=== PATIENT | female | born 1970 | race Caucasian/White ===

== ENCOUNTER 2016-06-14 21:55 | Emergency (ER) | payer OTHER ==
--- NOTE | 2016-06-15 03:12 | ED CLINICAL REPORT ---
Clinical Report - Physicians/Mid Levels [facility] [address] [place] [address] 06/14/2016 21:56 Patient: MICHELLE VENTURA Time Seen: 22:52. Arrived- By private vehicle. Historian- patient. HISTORY OF PRESENT ILLNESS Chief Complaint: ABDOMINAL PAIN. It is described as "pain". No radiation. It is described as located in the right flank and the right abdomen and right lower quadrant. This started about 3 days ago and is now gone. It was abrupt in onset and has been intermittent. No nausea or vomiting. She has had mild diarrhea. No bloody or blood-tinged diarrhea. Similar symptoms previously: REVIEW OF SYSTEMS The patient is post-menopausal. No pelvic pain or vaginal discharge. She has had pain during and after urination. All systems otherwise negative, except as recorded above. SOCIAL HISTORY Current every day light tobacco smoker (cigarette)- less than 1/2 a pack per day. Regular alcohol use. History of heavy drug use: marijuana. FAMILY HISTORY Denies family medical history. ADDITIONAL NOTES The nursing notes have been reviewed. PHYSICAL EXAM Vital Signs: 06/14/2016 22:30 BP: 122/91. HR: 97. RR: 17. O2 saturation: 100%. Temp: 98.1 F. Pain level now: 0/10. Have been reviewed. Appearance: Alert. Eyes: Pupils equal, round and reactive to light. ENT: Pharynx normal. Neck: Normal inspection. Neck supple. CVS: Normal heart rate and rhythm. Heart sounds normal. Respiratory: No respiratory distress. Breath sounds normal. Abdomen: Soft. Mild tenderness in the right side of the abdomen. Abnormal bowel sounds: hyperactive. No organomegaly. No mass. Back: Normal inspection. No CVA tenderness. Skin: Skin warm and dry. Normal skin color. Normal skin turgor. Extremities: Extremities exhibit normal ROM. No calf tenderness. No lower extremity edema. LABS, X-RAYS, AND EKG Abdominal CT: nonspecific findings. No evidence of appendicitis. Cannot exclude early or mild colitis in the appropriate clinical setting. It is not convincing. Elongated right lobe of liver may be hepatomegaly or prominent right L slope no urinary tract stone or evidence of UTI degenerative changes at L4-5 greater on the right transitional vertebral body on the right at L5-S1. The study was interpreted by the radiologist and contemporaneously by me. Laboratory Tests: CBC w Diff: (RACHEL: 06/15/2016 01:48) ( MsgRcvd 06/15/2016 01:58) Final results Test Result Flag Units (Reference) WHITE BLOOD COUNT 7.8 K/uL (4.5-11.5) RED BLOOD COUNT 4.40 M/uL (4.00-5.20) HEMOGLOBIN 14.3 gm/dL (12.0-16.0) HEMATOCRIT 43.3 % (36.0-46.0) MEAN CELL VOLUME 98 fL (80-100) MEAN CORPUSCULAR HGB 32 pg (26-34) MEAN CORPUSCULAR HGB CONC 33 g/dL (31-37) RED CELL DISTRIBUTION WIDTH 13.5 % (11.6-14.8) PLATELET COUNT 331 K/uL (150-400) NEUTROPHIL % 51.9 % (50-75) LYMPH % 37.3 % (25-40) MONO % 7.6 % (3-14) EOSINOPHIL % 2.1 % (0-4) BASOPHIL % 1.1 % (0-2) CMP: (RACHEL: 06/15/2016 01:48) ( MsgRcvd 06/15/2016 02:10) Final results Test Result Flag Units (Reference) GLUCOSE 94 mg/dL (70-110) BUN 4 L mg/dL (7-18) CREATININE 0.6 mg/dL (0.6-1.3) Estimated GFR >60 mL/min Estimated GFR- >60 mL/min Note: Persistent reduction over 3 months in eGFR<60 mL/min/1.73 m2 defines CKD. Patients with eGFR values>=60 mL/min/1.73 m2 may also have CKD if evidence ofpersistent proteinuria. Additional information may be foundat www.kidney.org. SODIUM 144 mmol/L (136-145) POTASSIUM 3.9 mmol/L (3.5-5.1) CHLORIDE 107 mmol/L (98-107) CARBON DIOXIDE 25 mmol/L (21-32) CALCIUM 8.3 L mg/dL (8.5-10.1) TOTAL PROTEIN 7.5 g/dL (6.4-8.2) ALBUMIN 3.7 g/dL (3.3-5.0) BILIRUBIN, TOTAL 0.4 mg/dL (0.0-1.0) ALKALINE PHOSPHATASE 99 U/L (46-116) AST (SGOT) 20 U/L (15-37) ALT (SGPT) 27 U/L (12-78) LIPASE 177 U/L (73-393) AMYLASE 41 U/L (25-115) UA-Culture if indicated: (RACHEL: 06/14/2016 22:45) ( MsgRcvd 06/14/2016 23:04) Final results Test Result Flag Units (Reference) URINE COLOR YELLOW URINE APPEARANCE CLEAR URINE GLUCOSE NEGATIVE (NEGATIVE) URINE BILIRUBIN NEGATIVE (NEGATIVE) URINE KETONE NEGATIVE (NEGATIVE) URINE SPECIFIC GRAVITY <= 1.005 L (1.010-1.030) URINE PH 6.0 (5.0-8.0) URINE PROTEIN NEGATIVE (NEGATIVE) URINE UROBILINOGEN 0.2 EU/dL (0.2-1.0) URINE NITRITE NEGATIVE (NEGATIVE) URINE BLOOD TRACE-INTACT (NEGATIVE) URINE LEUK ESTERASE NEGATIVE (NEGATIVE) URINE RBC 0-1 rbc/hpf (0-1) URINE WBC 0-1 wbc/hpf (0-1) URINE EPITHELIAL CELLS 0-1 EPI/hpf (0-5) URINE BACTERIA NONE SEEN (NONE SEEN) URINE COMMENT CULT NOT INDICATED URINE CULTURES ARE SET-UP BASED ON THE FOLLOWING CRITERIA:POSITIVE NITRITEPOSITIVE LEUKOCYTE ESTERASEGREATER THAN 10 WHITE BLOOD CELLSMODERATE (2+) OR GREATER BACTERIA Urine: (RACHEL: 06/14/2016 22:45) ( MsgRcvd 06/14/2016 23:01) Final results Test Result Flag Units (Reference) URINE NEGATIVE . PROGRESS AND PROCEDURES Course of Care: Patient is stable. Patient/family counseled. Old medical records ordered. Old records unavailable. Disposition: Discharged. Condition: stable. CLINICAL IMPRESSION Acute gastroenteritis. INSTRUCTIONS Drink plenty of fluids. Warnings: Further evaluation is necessary. GENERAL WARNINGS: Return or contact your physician immediately if your condition worsens or changes unexpectedly, if not improving as expected, or if other problems arise. Understanding of the discharge instructions verbalized by patient and family. Follow-up with: Tate Pollock MD, [facility], , [address] [place] [address] Follow up tomorrow. Call for the next available appointment. (Electronically signed by Terrell Presley MD 06/19/2016 15:58)
--- NOTE | 2016-06-15 03:12 | ED ORDER SUMMARY ---
..... Patient: MICHELLE VENTURA OrderSheet [facility] VisitID: [id number] [place] [address] 45y, F Registration Date/Time: 06/14/2016 ORDER SHEET Weight: 67.1 kg (stated) Allergies: Vicodin, Codeine GENERAL ORDERS: UA-Culture if indicated Urgent (22:54 06/14/2016 Joshua LOMBARDI) (Ack 23:10 Meka) (23:16 JQuivey R.N.) Urine Urgent (:54 06/14/2016 Joshua LOMBARDI) (Ack 23:10 Meka) (23:16 JQuivey R.N.) CBC w Diff Urgent (06/15/2016 Joshua LOMBARDI) (Ack 1:32 LMuller) (1:50 JQuivey R.N.) CMP Urgent (:06/15/2016 Joshua LOMBARDI) (Ack 1:32 LMuller) (1:50 JQuivey R.N.) Amylase Urgent (:06/15/2016 Joshua LOMBARDI) (Ack 1:32 LMharithaer) (1:50 JQuivey R.N.) Lipase Urgent (:06/15/2016 Joshua LOMBARDI) (Ack 1:32 LMuller) (1:51 JQuivey R.N.) CT Abd/Pel w Cont (No) (See report) Urgent (:31 06/15/2016 Joshua LOMBARDI) (Ack 1:32 BOBuller) (2:32 Baltazar) (2:33 JQuivey R.N.) MEDICATION ORDERS: IV FLUIDS: IV NS : initial bolus 500 mL (1000 mL/hr), then 125 mL/hr for 4h (NOW); Urgent (:06/15/2016 Joshua LOMBARDI) (Ack 1:33 JQuivey R.N.) ORDER SHEET NOTES: [Electronically signed by Rosalina Granados R.N. (03:23 06/15/2016)] [Electronically signed by Terrell Presley MD (15:58 06/19/2016)] [Electronically locked/signed by Rosalina Granados R.N. (03:23 06/15/2016)]
--- NOTE | 2016-06-15 03:12 | ED NURSING NOTES ---
Clinical Report - Nurses [facility] [address] [place] [address] 06/14/2016 21:56 Patient: MICHELLE VENTURA TRIAGE Triage time 22:30. Acuity: LEVEL 3. Chief Complaint: ABDOMINAL PAIN and (Dark stools). 22:43. Alert. SEPSIS SCREEN: Sepsis Screen. Negative (no infection suspected/documented). --22:43 Myke Lubin R.N. 22:30 06/14/16. BP: 122/91. HR: 97. RR: 17. O2 saturation: 100% on room air. Temp: 98.1 F (oral). Pain level now: 0/10. Additional comments: Patient reports no pain as long as she pushes on her RLQ, pain worse when she sits up . --22:43 yMke Lubin R.N. Height/Length: 65 inches Per Patient. --22:36 Myke Lubin R.N.. <<STRICKEN ENTRY-- Weight: 544.3 kg stated. BMI: 199.9. --END STRIKE>> Correction --22:36 Myke Lubin R.N.. Weight: 67.1 kg stated. BMI: 24.6. --22:36 Myke Lubin R.N. Medications Xanax Oral 1 mg, at bedtime. --22:38 Myke Lubin R.N. Cyclobenzaprine HCl Oral 20 mg, at bedtime. --22:39 Myke Lubin R.N. Allergies Vicodin. --22:40 Myke Lubin R.N. Codeine. --22:40 Myke Lubin R.N. Medication/allergy information source: the patient. --22:43 Myke Lubin R.N. History Arrived by private vehicle. Historian: patient. Accompanied by spouse. Primary physician (Phill). Onset. (1 months ago). ( Patient reports being worked up by Dr. Pollock for this same issue). Treatment MATHEMATICS DEPARTMENT CHAIR: None. PAST MEDICAL HX: Immunizations: up-to-date. Last normal menstrual period- 7 years ago. The patient is post-menopausal. SOCIAL HX: Current every day heavy tobacco smoker- 1 pack per day. Regular alcohol use. (amount varies). History of drug use: marijuana. (daily). No recent travel. No infectious disease exposure. ABUSE ASSESSMENT: No report of abuse. FALL RISK ASSESSMENT: Fall risk assessment completed. No fall risk identified. NUTRITIONAL RISK ASSESSMENT: The nutritional risk assessment revealed no deficiencies. FUNCTIONAL ASSESSMENT: Functional assessment: no impairments noted. LEARNING NEEDS ASSESSMENT: The learning needs assessment revealed no barriers. SKIN INTEGRITY ASSESSMENT: Skin integrity risk assessment completed. No skin integrity risk identified. --22:43 Myke Lubin R.N. PROBLEMS: Panic Attack. Agoraphobia. Anxiety Reaction. --22:41 Myke Lubin R.N. ADDITIONAL SURGERIES: Right hand surgery . --22:41 Myke Lubin R.N. Interventions ID band on patient. To treatment room. --22:43 Myke Lubin R.N. PHYSICAL ASSESSMENT 22:44. Ambulatory to room. Patient gowned. GENERAL / NEURO / PSYCH: Alert. Oriented X 4. HEENT: Mucous membranes are pink. RESPIRATORY: Respirations not labored. SKIN: Skin is warm and dry. --22:44 Myke Lubin R.N. NURSING PROGRESS NOTES 22:30 Patient to restroom to collect urine sample. --22:30 Myke Lubin R.N. 22:35. Patient ID band checked for patient name and birthdate: patient confirmed. Clean catch urine collected with return of yellow-colored clear urine; sample sent to lab for urinalysis. Specimen labeled in the presence of the patient. --22:44 Myke Lubin R.N. 22:44 Patient made a statement that didn't want any more tests CT scans done, I told her she can refuse any tests /treatment, when I told her with where her pain is located and with her symptoms we are concerned about appendacytis and a poosible GI bleed, the patient began to cry and asked if she could take 1 of her Xanax, I told her I can't stop her from taking her medications. --22:55 Myke Lubin R.N. 22:[address] Presley about pt and the Xanax. --22:55 Myke Lubin R.N. 01:08 06/15/16. BP: 99/71. HR: 77. O2 saturation: 95%. Temp: 97.8 F. --01:10 Chloe Du 01:45 06/15/2016 Site #1 started via IV in the right wrist with an 20g angiocath, with aseptic technique and good blood return; one attempt. Blood drawn: rainbow set. Labeled in the presence of the patient and sent to the lab. Saline lock flushed with 10 mL saline. --01:51 Myke Lubin R.N. 01:48 06/15/2016 Started bag #1 1000 mL IV Fluids IV NS (Saline); at 1000 mL/hr over 30 minute(s) via site #1 via IV pump. Allergies verified and confirmed 5 rights. IV patency established. IV site checked: no pain, redness, or swelling. IV flushed thoroughly pre- and post-medication administration. --01:51 Myke Lubin R.N. 02:33 06/15/2016 IV Fluids IV NS via IV site #1 Rate Changed: bag #1 decreased to 125 mL/hr via IV pump. IV patency established. IV site checked: no pain, redness, or swelling. IV flushed thoroughly. --02:33 Myke Lubin R.N. 02:13. Patient transported to CT by stretcher with tech. --02:34 Myke Lubin R.N. 02:27. Patient returned from CT by stretcher with tech. --02:34 Myke Lubin R.N. DISPOSITION / DISCHARGE 03:21 06/15/16. BP: 120/89. HR: 92. RR: 16. O2 saturation: 100% on room air. Temp: deferred. Rushing-Maciel pain scale: 09/13. --03:22 Rosalina Granados R.N. Condition at departure: improved and stable. No learning barriers present. Discharge instructions provided and reviewed with the patient. Patient verbalized understanding. Written instructions provided in Faroese. The patient was discharged home and accompanied by family. She left the Emergency Department ambulatory and via private vehicle. Family member driving. --03:22 Rosalina Granados R.N. 03:15 06/15/2016 Site #1 removed upon discharge. Catheter intact. Manual pressure and bandage applied. --03:22 Rosalina Granados R.N. 03:15 06/15/2016 IV Fluids IV NS Discontinued: bag #1 STOPPED. Total amount infused: 600 mL. IV patency established. IV site checked: no pain, redness, or swelling. IV flushed thoroughly. --03:22 Rosalina Granados R.N. Locked/Released at 06/15/2016 3:23 by Rosalina Granados R.N.
--- NOTE | 2016-06-15 03:12 | ED ORDER SUMMARY ---
..... Patient: MICHELLE VENTURA OrderSheet [facility] VisitID: [id number] [place] [address] 45y, F Registration Date/Time: 06/14/2016 ORDER SHEET Weight: 67.1 kg (stated) Allergies: Vicodin, Codeine GENERAL ORDERS: UA-Culture if indicated Urgent (22:54 06/14/2016 Joshua LOMBARDI) (Ack 23:10 Meka) (23:16 JQuivey R.N.) Urine Urgent (:54 06/14/2016 Joshua LOMBARDI) (Ack 23:10 Meka) (23:16 JQuivey R.N.) CBC w Diff Urgent (06/15/2016 Joshua LOMBARDI) (Ack 1:32 LMuller) (1:50 JQuivey R.N.) CMP Urgent (:06/15/2016 Joshua LOMBARDI) (Ack 1:32 LMuller) (1:50 JQuivey R.N.) Amylase Urgent (:06/15/2016 Joshua LOMBARDI) (Ack 1:32 LMharithaer) (1:50 JQuivey R.N.) Lipase Urgent (:06/15/2016 Joshua LOMBARDI) (Ack 1:32 LMuller) (1:51 JQuivey R.N.) CT Abd/Pel w Cont (No) (See report) Urgent (:31 06/15/2016 Joshua LOMBARDI) (Ack 1:32 BOBuller) (2:32 Baltazar) (2:33 JQuivey R.N.) MEDICATION ORDERS: IV FLUIDS: IV NS : initial bolus 500 mL (1000 mL/hr), then 125 mL/hr for 4h (NOW); Urgent (:06/15/2016 Joshua LOMBARDI) (Ack 1:33 JQuivey R.N.) ORDER SHEET NOTES: [Electronically signed by Rosalina Granados R.N. (03:23 06/15/2016)] [Electronically signed by Terrell Presley MD (15:58 06/19/2016)] [Electronically locked/signed by Rosalina Granados R.N. (03:23 06/15/2016)]
--- NOTE | 2016-06-15 07:33 | DIAGNOSTIC IMAGING REPORT ---
PROCEDURE: CT ABD/PELVIS WITH CONTRAST INDICATION: Right flank and abdominal pain. TECHNIQUE: 125 ml of Isovue 300 were injected intravenously and axial images were obtained of the entire abdomen and pelvis with sagittal and coronal reformations. Preliminary report provided by Leena Montoya MD ([facility]). COMPARISON: Compared to renal ultrasound on 01/27/2016. FINDINGS: ABDOMEN: Mild increased fluid in the stomach, small bowel, and right colon. Bowel pattern is otherwise normal, including appendix. Gallbladder, liver, spleen, pancreas, kidneys, and aorta are normal. Mild to moderate degenerative changes of the lower lumbar spine. PELVIS: Uterus and adnexal structures are normal. No evidence of free fluid. IMPRESSION: 1. Mild increased fluid in the stomach, small bowel, right colon. Consider developing gastroenteritis. 2. Otherwise negative CT abdomen and pelvis. 3. Findings discussed with Dr. Presley. All CT scans at this facility use dose modulation, iterative reconstruction, and/or weight-based dosing when appropriate to reduce radiation dose to as low as reasonably achievable.
--- NOTE | 2016-06-15 07:33 | DIAGNOSTIC IMAGING REPORT ---
PROCEDURE: CT ABD/PELVIS WITH CONTRAST INDICATION: Right flank and abdominal pain. TECHNIQUE: 125 ml of Isovue 300 were injected intravenously and axial images were obtained of the entire abdomen and pelvis with sagittal and coronal reformations. Preliminary report provided by Leena Montoya MD ([facility]). COMPARISON: Compared to renal ultrasound on 01/27/2016. FINDINGS: ABDOMEN: Mild increased fluid in the stomach, small bowel, and right colon. Bowel pattern is otherwise normal, including appendix. Gallbladder, liver, spleen, pancreas, kidneys, and aorta are normal. Mild to moderate degenerative changes of the lower lumbar spine. PELVIS: Uterus and adnexal structures are normal. No evidence of free fluid. IMPRESSION: 1. Mild increased fluid in the stomach, small bowel, right colon. Consider developing gastroenteritis. 2. Otherwise negative CT abdomen and pelvis. 3. Findings discussed with Dr. Presley. All CT scans at this facility use dose modulation, iterative reconstruction, and/or weight-based dosing when appropriate to reduce radiation dose to as low as reasonably achievable.
--- NOTE | 2016-06-19 15:58 | ED DISCHARGE INSTRUCTIONS ---
Patient: MICHELLE VENTURA General Instructions [facility] VisitID: [id number] [address] [place], [place] [id number] 45y, F Registration Date/Time: 06/14/2016 Acute gastroenteritis. INSTRUCTIONS Drink plenty of fluids. Warnings: Further evaluation is necessary. GENERAL WARNINGS: Return or contact your physician immediately if your condition worsens or changes unexpectedly, if not improving as expected, or if other problems arise. Understanding of the discharge instructions verbalized by patient and family. Follow-up with: Tate Pollock MD, [facility], , [id number] [facility], , [facility] [address] Follow up tomorrow. Call for the next available appointment. ADDITIONAL INFORMATION Viral Gastroenteritis (6Yr-Adult) Gastroenteritis is another name for thestomach flu.It is most often caused by a virus that affects the stomach and intestinal tract. Symptoms include stomach cramping and fever, vomiting and/or diarrhea, and can last from 2 to 7 days. The danger from repeated vomiting or diarrhea is dehydration. This is the loss of too much water and minerals from the body. When this occurs, body fluids must be replaced. Antibiotics are not effective for this illness, but simple home treatment will be helpful. Home Care If symptoms are severe, rest at home for the next 24 hours. Avoid tobacco, caffeine, and alcohol use, which can worsen symptoms. Acetaminophen (Tylenol) or ibuprofen (Motrin, Advil) may be usedfor fever or pain unless another medication was prescribed. NOTE: If you have chronic liver or kidney disease or ever had a stomach ulcer or GI bleeding, talk with your doctor before using these medicines. Aspirin should never be used in anyone under 18 years of age who is ill with a fever. It may cause severe liver damage. If medicines for diarrhea or vomiting were prescribed, be sure they are takenonly as directed. If vomiting, drink small amounts of clear fluids (such as water, sports drinks, clear sodas) at frequent intervals to prevent dehydration. Start with 1 to 2 tablespoons every 10 minutes. Once vomiting stops, follow these guidelines: During The First 12 To 24 Hours follow the diet below: Beverages: Sport drinks like Gatorade, soft drinks without caffeine; nya sidra, mineral water (plain or flavored), decaffeinated tea and coffee. Soups: Clear broth, consomm and bouillon Desserts: Plain gelatin (Jell-O), Popsicles and fruit juice bars. During The Next 24 Hours you may add the following to the above: Hot cereal, plain toast, bread, rolls, crackers Plain noodles, rice, mashed potatoes, chicken noodle or rice soup Unsweetened canned fruit (avoid pineapple), bananas Limit fat intake to less than 15 grams per day by avoiding margarine, butter, oils, mayonnaise, sauces, gravies, fried foods, peanut butter, meat, poultry, and fish. Limit fiber; avoid raw or cooked vegetables, fresh fruits (except bananas), and bran cereals. Limit caffeine and chocolate. Do not use spices or seasonings except salt. During The Next 24 Hours The patient can gradually resume a normal diet as symptoms lessen. Preventing Spread Hand washing with soap and water is the best way to prevent the spread of viruses. Caregivers should wash their hands before andafter touching the sick person. The sick person, as well as everyone in the family,should wash their hands after using the toilet and before meals. Clean the toilet after each use. People with diarrhea should not prepare food for others. If you are preparing your own foods, wash your hands before and after. Follow Up with your doctor as advised. Call your doctor if you are not improving over the next 2 to 3 days. If a stool (diarrhea) sample was taken, you may call in 2 days (or as directed) for the results. Get Prompt Medical Attention if any of the following occur: Increasing abdominal pain Continued vomiting (unable to keep liquids down) Frequent diarrhea (more than 5 times a day) Blood in vomit or stool (black or red color) Dark urine, reduced urine output, or extreme thirst Weakness, dizziness, fainting Drowsiness, confusion, stiff neck, or seizure Fever of 100.4F (38C) oral or higher, not better with fever medication New rash You have been given the following additional information: Gastroenteritis, Viral (6Y-Adult) (Electronically signed by Terrell Presley MD 06/19/2016 15:58)
--- NOTE | 2016-06-19 15:58 | ED DISCHARGE INSTRUCTIONS ---
Patient: MICHELLE VENTURA General Instructions [facility] VisitID: [id number] [address] [place], [place] [id number] 45y, F Registration Date/Time: 06/14/2016 Acute gastroenteritis. INSTRUCTIONS Drink plenty of fluids. Warnings: Further evaluation is necessary. GENERAL WARNINGS: Return or contact your physician immediately if your condition worsens or changes unexpectedly, if not improving as expected, or if other problems arise. Understanding of the discharge instructions verbalized by patient and family. Follow-up with: Tate Pollock MD, [facility], , [address] [facility], , [facility] [id number] Follow up tomorrow. Call for the next available appointment. ADDITIONAL INFORMATION Viral Gastroenteritis (6Yr-Adult) Gastroenteritis is another name for thestomach flu.It is most often caused by a virus that affects the stomach and intestinal tract. Symptoms include stomach cramping and fever, vomiting and/or diarrhea, and can last from 2 to 7 days. The danger from repeated vomiting or diarrhea is dehydration. This is the loss of too much water and minerals from the body. When this occurs, body fluids must be replaced. Antibiotics are not effective for this illness, but simple home treatment will be helpful. Home Care If symptoms are severe, rest at home for the next 24 hours. Avoid tobacco, caffeine, and alcohol use, which can worsen symptoms. Acetaminophen (Tylenol) or ibuprofen (Motrin, Advil) may be usedfor fever or pain unless another medication was prescribed. NOTE: If you have chronic liver or kidney disease or ever had a stomach ulcer or GI bleeding, talk with your doctor before using these medicines. Aspirin should never be used in anyone under 18 years of age who is ill with a fever. It may cause severe liver damage. If medicines for diarrhea or vomiting were prescribed, be sure they are takenonly as directed. If vomiting, drink small amounts of clear fluids (such as water, sports drinks, clear sodas) at frequent intervals to prevent dehydration. Start with 1 to 2 tablespoons every 10 minutes. Once vomiting stops, follow these guidelines: During The First 12 To 24 Hours follow the diet below: Beverages: Sport drinks like Gatorade, soft drinks without caffeine; nya sidra, mineral water (plain or flavored), decaffeinated tea and coffee. Soups: Clear broth, consomm and bouillon Desserts: Plain gelatin (Jell-O), Popsicles and fruit juice bars. During The Next 24 Hours you may add the following to the above: Hot cereal, plain toast, bread, rolls, crackers Plain noodles, rice, mashed potatoes, chicken noodle or rice soup Unsweetened canned fruit (avoid pineapple), bananas Limit fat intake to less than 15 grams per day by avoiding margarine, butter, oils, mayonnaise, sauces, gravies, fried foods, peanut butter, meat, poultry, and fish. Limit fiber; avoid raw or cooked vegetables, fresh fruits (except bananas), and bran cereals. Limit caffeine and chocolate. Do not use spices or seasonings except salt. During The Next 24 Hours The patient can gradually resume a normal diet as symptoms lessen. Preventing Spread Hand washing with soap and water is the best way to prevent the spread of viruses. Caregivers should wash their hands before andafter touching the sick person. The sick person, as well as everyone in the family,should wash their hands after using the toilet and before meals. Clean the toilet after each use. People with diarrhea should not prepare food for others. If you are preparing your own foods, wash your hands before and after. Follow Up with your doctor as advised. Call your doctor if you are not improving over the next 2 to 3 days. If a stool (diarrhea) sample was taken, you may call in 2 days (or as directed) for the results. Get Prompt Medical Attention if any of the following occur: Increasing abdominal pain Continued vomiting (unable to keep liquids down) Frequent diarrhea (more than 5 times a day) Blood in vomit or stool (black or red color) Dark urine, reduced urine output, or extreme thirst Weakness, dizziness, fainting Drowsiness, confusion, stiff neck, or seizure Fever of 100.4F (38C) oral or higher, not better with fever medication New rash You have been given the following additional information: Gastroenteritis, Viral (6Y-Adult) (Electronically signed by Terrell Presley MD 06/19/2016 15:58)
--- NOTE | 2016-06-19 15:58 | ED MED RECONCILIATION SUMMARY ---
Patient: MICHELLE VENTURA Medication Reconciliation Report [facility] VisitID: [id number] [address] [place] [address] 45y, F Registration Date/Time: 06/14/2016 Weight: 67.1 kg Height/Length: 65 in. BMI: 24.6 ALLERGIES: Codeine, Vicodin The patient's Home Medications are listed below: THE FOLLOWING MEDICATIONS NEED TO BE RECONCILED: Cyclobenzaprine HCl Oral 20 mg, at bedtime Xanax Oral 1 mg, at bedtime The source(s) of the original Home Medication information: patient The following Medications were given to the patient in the Emergency Department: IV NS IV Fluids bolus 0, then 1000 mL/hr, administered: 06/15/2016 1:48:00 AM The following Medications were prescribed to the patient: None.
--- NOTE | 2016-06-19 15:58 | ED MAR SUMMARY ---
..... Medication Administration Record [facility] [address] [place] [address] Patient: MICHELLE VENTURA Visit ID: [id number] 45y, F Weight: 67.1 kg Height/Length: 65 in BMI: 24.6 ALLERGIES: Codeine, Vicodin Start 01:48 06/15/2016 Myke Lubin, R.N., Stop 03:15 06/15/2016 Rosalina Granados, R.N. Medication Administered: IV NS (SALINE), Dose: IV Fluids over 30 minute(s), Rate: 1000 mL/hr, Dispensed: 1000 mL bag, Site: #1 right wrist. Medication Ordered: IV NS : initial bolus 500 mL (1000 mL/hr), then 125 mL/hr for 4h (NOW); Urgent.
--- NOTE | 2016-06-19 15:58 | ED MED RECONCILIATION SUMMARY ---
Patient: MICHELLE VENTURA Medication Reconciliation Report [facility] VisitID: [id number] [address] [place] [address] 45y, F Registration Date/Time: 06/14/2016 Weight: 67.1 kg Height/Length: 65 in. BMI: 24.6 ALLERGIES: Codeine, Vicodin The patient's Home Medications are listed below: THE FOLLOWING MEDICATIONS NEED TO BE RECONCILED: Cyclobenzaprine HCl Oral 20 mg, at bedtime Xanax Oral 1 mg, at bedtime The source(s) of the original Home Medication information: patient The following Medications were given to the patient in the Emergency Department: IV NS IV Fluids bolus 0, then 1000 mL/hr, administered: 06/15/2016 1:48:00 AM The following Medications were prescribed to the patient: None.
--- NOTE | 2016-06-19 15:58 | ED MAR SUMMARY ---
..... Medication Administration Record [facility] [address] [place] [address] Patient: MICHELLE VENTURA Visit ID: [id number] 45y, F Weight: 67.1 kg Height/Length: 65 in BMI: 24.6 ALLERGIES: Codeine, Vicodin Start 01:48 06/15/2016 Myke Lubin, R.N., Stop 03:15 06/15/2016 Rosalina Granados, R.N. Medication Administered: IV NS (SALINE), Dose: IV Fluids over 30 minute(s), Rate: 1000 mL/hr, Dispensed: 1000 mL bag, Site: #1 right wrist. Medication Ordered: IV NS : initial bolus 500 mL (1000 mL/hr), then 125 mL/hr for 4h (NOW); Urgent.
== END 2016-06-15 03:17 | disposition home or self-care (01) ==
LOC: ED SRH 21:55
DX: K52.9 Noninfective gastroenteritis and colitis, unspecified (principal); Z88.5 Allergy status to narcotic agent
CPT/HCPCS: 90004; 90100; 92235; 92530; 93070; 95059